=== PATIENT | male | born 1990 | race Caucasian/White ===

== ENCOUNTER 2024-06-25 14:16 | Outpatient (CLI) | payer OTHER | END 2024-06-25 23:59 | disposition home or self-care (01) | LOC: MRI02 14:16 | PROVIDERS: ATTEND Orthopaedic Surgery | DX: M25.461 Effusion, right knee (principal); M25.562 Pain in left knee; M25.561 Pain in right knee; M94.232 Chondromalacia, left wrist; M94.231 Chondromalacia, right wrist; M94.261 Chondromalacia, right knee; M25.861 Other specified joint disorders, right knee | CPT/HCPCS: 73721 ==